=== PATIENT | female | born 1970 | race Caucasian/White ===

== ENCOUNTER → 2016-12-12 | Outpatient (CLI) | payer BC ==
--- NOTE | 2016-12-15 07:43 | MAMMOGRAPHY REPORT ---
BILATERAL DIGITAL SCREENING MAMMOGRAM TOMOSYNTHESIS WITH CAD: 12/12/2016 CLINICAL HISTORY: Routine screening. Patient has no complaints. TECHNIQUE: Breast tomosynthesis in addition to standard 2D mammography was performed. Current study was also evaluated with a Computer Aided Detection (CAD) system. COMPARISON: Comparison is made to exams dated: 10/14/2013 mammogram, 10/14/2013 ultrasound, 10/06/2013 mammogram, 10/05/2012 mammogram, and 10/09/2010 mammogram - [facility]. BREAST COMPOSITION: The tissue of both breasts is extremely dense, which lowers the sensitivity of m ammography. FINDINGS: No suspicious masses, calcifications, or areas of architectural distortion are noted in ei ther breast. There has been no significant interval change compared to prior exams. IMPRESSION: ACR BI-RADS CATEGORY 1: NEGATIVE There is no mammographic evidence of malignancy. A 1 year screening mammogram is recommended. The pa tient will receive written notification of the results. Approximately 10% of breast cancers are not detected with mammography. A negative mammographic report should not delay biopsy if a clinically suggestive mass is present. Jaja Ramirez M.D. /:12/12/2016 15:38:27 Automobile Tester: Nichole ADDISON(Monica)(M), [facility] letter sent: Normal 1/2 BI-RADS Code: ACR BI-RADS Category 1: Negative
== END | disposition home or self-care (01) ==
LOC: C.MAMM 12:46
PROVIDERS: ATTEND Obstetrics & Gynecology
DX: Z12.31 Encounter for screening mammogram for malignant neoplasm of breast (principal)

== ENCOUNTER → 2016-12-25 | Outpatient (CLI) | payer BC ==
--- NOTE | 2016-12-25 16:44 | DIAGNOSTIC IMAGING REPORT ---
MRI THE BRAIN AND IACS WITHOUT CONTRAST CLINICAL HISTORY: No onset headaches. Bilateral tinnitus. COMPARISON STUDY: No previous studies for comparison. FINDINGS: No intra or extra-axial mass lesions are visualized. Axial diffusion-weighted images reveal no evidence of acute or subacute infarction. There is no hydrocephalus. Proton density, T2, and FLAIR images reveal a few tiny foci of increased signal within the white matter, likely on a small vessel basis. No cerebellopontine angle masses are visualized on this noncontrast study. The 7th and 8th nerve complexes appear normal as visualized. IMPRESSION: 1. No acute intracranial findings 2. No evidence of acute or subacute infarction 3. No masses identified in this noncontrast study 4. Minimal nonspecific foci of increased T2 and FLAIR signal within the white matter, likely a small vessel basis Electronically signed by: Rory Ballard M.D. 12/25/2016 4:43 PM Dictated Date/Time: 12/25/2016 4:38 PM
== END | disposition home or self-care (01) ==
LOC: C.MRIBC 15:48
PROVIDERS: ATTEND Internal Medicine
DX: H93.13 Tinnitus, bilateral (principal); R51 Headache

== ENCOUNTER → 2017-02-02 | Outpatient (CLI) | payer BC | END | disposition home or self-care (01) | LOC: C.PAPS 15:27 | PROVIDERS: ATTEND Obstetrics & Gynecology | DX: Z01.419 Encounter for gynecological examination (general) (routine) without abnormal findings (principal) ==

== ENCOUNTER → 2018-01-07 | Outpatient (CLI) | payer OTHER ==
--- NOTE | 2018-01-07 15:10 | MAMMOGRAPHY REPORT ---
BILATERAL DIGITAL SCREENING MAMMOGRAM TOMOSYNTHESIS WITH CAD: 01/07/2018 CLINICAL HISTORY: Routine screening. TECHNIQUE: Breast tomosynthesis in addition to standard 2D mammography was performed. Current study w as also evaluated with a Computer Aided Detection (CAD) system. COMPARISON: Comparison is made to exams dated: 12/12/2016 mammogram, 10/14/2013 mammogram, 10/06/2013 m ammogram, 10/05/2012 mammogram, and 10/09/2010 mammogram - [facility]. BREAST COMPOSITION: The tissue of both breasts is extremely dense, which lowers the sensitivity of ma mmography. FINDINGS: No suspicious masses, calcifications, or areas of architectural distortion are noted in either breast . There has been no significant interval change compared to prior exams. IMPRESSION: ACR BI-RADS CATEGORY 1: NEGATIVE There is no mammographic evidence of malignancy. A 1 year screening mammogram is recommended.( [id number]) The patient will receive written notification of the results. Some breast cancers are not detected with mammography. A negative mammographic report should not karyn y biopsy if a clinically suggestive mass is present. Jaja Ramirez M.D. ah/:01/07/2018 14:24:49 Contracting Specialist: RT Cindy(Monica)(M), [facility] letter sent: Normal 1/2 BI-RADS Code: ACR BI-RADS Category 1: Negative
== END | disposition home or self-care (01) ==
LOC: C.MAMM 10:34
PROVIDERS: ATTEND Obstetrics & Gynecology
DX: Z12.31 Encounter for screening mammogram for malignant neoplasm of breast (principal)